=== PATIENT | male | born 1970 | race Caucasian/White ===

== ENCOUNTER 2017-06-07 16:44 | Inpatient (IN) | payer OTHER ==
--- NOTE | 2017-06-07 20:00 | NUR ---
PT IS RESTING IN BED WITH EYES OPEN. VOICED ANGER THAT HE HAD NOT EATEN SUPPER , AND NOBODY HAD ASKED HIM IF HE WAS HUNGRY. SANDWICH PLATTER GIVEN TO PT. HONEY THICKED WATER GIVEN TO PT. DRESSING TO ABD IS CDI. NO DRAINAGE NOTED. OLD TRACH SITE IS HEALING WELL. C COLLAR IS ON AND INTACT. CONTACT PRECAUTIONS OBSERVED WITH PT. PEG TUBE IS INTACT. SR'S ARE UP X 3. CALL LIGHT AND BEDSIDE TABLE ARE WITHIN EASY REACH.
[2017-06-07 22:00] VITALS: BP 120/82; BMI 38.5
--- NOTE | 2017-06-07 22:00 | NUR ---
ADMISSION ASSESSMENT COMPLETED. PT. IN BED WITH C-COLLAR IN PLACE. ABD. DRESSING C/D/I AND PEG TUBE CLAMPED. PT. REQUESTING HIS PAIN MEDICATION AT THIS TIME. INFORMED Davion STAPLES LPN, AND NURSE WAS ON HIS WAY INTO ROOM WITH IT NOW. CALL LIGHT WITHIN REACH.
[2017-06-07] MEDS ORDERED: BACTROBAN CREAM15 GM TOPICAL (22:53)
[2017-06-07] MEDS ORDERED: PERCOCET 5-3251 TAB PO (22:54)
[2017-06-07] MEDS ORDERED: NYSTATIN ORAL SU5 ML PO (22:54)
[2017-06-07] MEDS ORDERED: INDERAL10 MG PO (22:55)
[2017-06-07] MEDS ORDERED: SEROQUEL25 MG PO (22:56)
[2017-06-07] MEDS ORDERED: GAS-X80 MG PO (22:57)
[2017-06-07] MEDS ORDERED: TRANSDERM-SCOP1.5 MG TD (22:57)
[2017-06-07] MEDS ORDERED: PERIDEX480 ML MM (22:58)
[2017-06-07] MEDS ORDERED: CATAPRES0.1 MG PO (22:58)
[2017-06-07] MEDS ORDERED: LOVENOX40 MG/0.4 SC (22:59)
[2017-06-07] MEDS ORDERED: DURAGESIC1 PATCH .4 TRANSDERM (22:59)
[2017-06-07] MEDS ORDERED: GABAPENTIN100 MG PO (23:00)
[2017-06-07] MEDS ORDERED: NUTRISOURCE FI1 EACH GT (23:05)
[2017-06-07] MEDS ORDERED: HYDROCORTISONE30 G8 TOPICAL (23:05)
--- NOTE | 2017-06-07 23:49 | NUR ---
PT IS RESTING IN BED WATCHING TV. NO NEEDS VOICED.
--- NOTE | 2017-06-08 03:50 | NUR ---
PT IS RESTING QUIETLY IN BED WITH EYES CLOSED. RESPS ARE EVEN AND UNLABORED. NO ACUTE DISTRESS NOTED.
--- NOTE | 2017-06-08 06:10 | NUR ---
PT RESTING IN BED WITH EYES CLOSED. DRESSING TO ABD NOT CHANGED, DUE TO AWAITING SPECIFIC ORDERS THIS AM.
[2017-06-08 06:40] LABS: BASOPHILS 0.1 % (0-2); EOSINOPHILS 3.1 % (0-7); HEMATOCRIT 36.3 % (42.0-54.0); HEMOGLOBIN 11.3 g/dL (13.5-17.5); IMMATURE GRANULOCYTES 0.1 % (0-5); LYMPHOCYTES 20.5 % (15-50); MCH 29.4 pg (26.0-34.0); MCHC 31.1 g/dL (31.0-37.0); MCV 94.3 fL (80.0-100.0); MEAN PLATELET VOLUME 8.5 fL (7.4-10.4); MONOCYTES 7.8 % (2-11); NEUTROPHILS 68.4 % (40-80); PLATELET COUNT 652 10x3/uL (130-400); RBC 3.85 10x6/uL (4.20-6.10); RDW 16.3 % (11.5-14.5); WBC 6.9 10x3/uL (4.8-10.8)
[2017-06-08 06:53] LABS: CALC OSMOLALITY 274 mosm/kg (275-300); CARBON DIOXIDE 27.6 mmol/L (21.0-32.0); CHLORIDE - SERUM 102 mmol/L (98-107); CREATININE - SERUM 0.5 mg/dL (0.6-1.3); GLUCOSE 92 mg/dL (74-106); SODIUM 137 mmol/L (136-145); UREA NITROGEN 15 mg/dL (7-18); eGFR NON AFRICAN AMERICAN > 90 mL/min (90-120)
--- NOTE | 2017-06-08 08:07 | NUR ---
JUST CLEANED FROM TOLIETING.CL IN REACH.
[2017-06-08 08:10] VITALS: BP 108/65
--- NOTE | 2017-06-08 08:50 | NUR ---
PT RESTING IN BED WITH EYES OPEN CALL LIGHT IN REACH PT LINENS SOILED WITH URINE PT LINENS CHANGED SET UP FOR BREAKFAST WILL MONITER
[2017-06-08 10:16] VITALS: BMI 38.4
--- NOTE | 2017-06-08 17:00 | NUR ---
PT RESTING IN BED WITH EYES OPEN CALL LIGHT IN REACH NO PROBLEMS WILL MONITER
--- NOTE | 2017-06-08 19:45 | NUR ---
PT RESTING IN BED WATCHING TV. ALERT AND ORIENTED X 4. DENIES ACUTE DISCOMFORT AT THIS TIME. VSS. DRESSING TO ABDOMENT CHANGED AT THIS TIME. MOD AMOUNT OF THICK YELLOW DRAINAGE NOTED. NO ODOR DETECTED. SITE CLEANSED WITH NS, AND PACKED WITH NU GAUZE. COVERED WITH 4X4'S AND A ABD PAD. CONTACT PRECAUTIONS OBSERVED. C-COLLAR IS ON AND INTACT. PEG TUBE FLUSHED EASILY WITH H2O. AWAITING WELCOME HOSTESS TO DELIVER FEEDING PUMP TO START NIGHTLY FEEDING. SR'S ARE UP X 3 IN BED. CALL LIGHT AND BEDSIDE TABLE ARE WITHIN EASY REACH.
--- NOTE | 2017-06-08 20:02 | NUR ---
PT. IN BED AND IS WATCHING TV AND EATING IS DINNER PIE. CALL LIGHT WITHIN REACH.
[2017-06-08 21:01] VITALS: BP 114/73
--- NOTE | 2017-06-08 21:29 | NUR ---
PT IS RESTING IN BED WATCHING TV. NO NEEDS VOICED.
--- NOTE | 2017-06-08 22:32 | NUR ---
PET TUBE FEEDING STARTED AT THIS TIME.
--- NOTE | 2017-06-09 00:22 | NUR ---
RESTING IN BED WITH EYES CLOSED.
--- NOTE | 2017-06-09 04:19 | NUR ---
PT REQUESTED ASSIST ONTO BEDPAN AT THIS TIME. MAX ASSIST REQUIRED.
[2017-06-09 08:00] VITALS: BP 121/74
--- NOTE | 2017-06-09 09:00 | NUR ---
PATIENT REMAINS IN ISOLATION. ALERT/ORIENT X4. CALL LIGHT WITHIN REACH. PRN PERCOCET GIVEN FOR ALL OVER PAIN/DISC. PATIENT HAS A C COLLOR ON AT ALL TIME.
--- NOTE | 2017-06-09 13:54 | NUR ---
PATIENT USING URINAL AT BEDSIDE. VOIDING ADEQUTE AMOUNT. DARK YELLOW URINE
--- NOTE | 2017-06-09 15:32 | NUR ---
PRN PAIN MEDCIATION GIVEN FOR BACK/NECK PAIN
--- NOTE | 2017-06-09 16:00 | NUR ---
RESTING QUIETLY IN BED.CL IN REACH.
--- NOTE | 2017-06-09 18:30 | NUR ---
DRESSING TO ABDOMENAL WOULD, PEG TUBE CHANGED. WOUND NURSE CONSULT ORDERED. PATIRIVAST HELPED ONTO BEDPAIN. ASST OF TWO. PATIENT HAS SLIGHT BOWEL MOVEMENT BEFORE HE WAS PUT ON BEDPAN. NO BOWEL MOVEMENT WHILE ON BEDPAN.
--- NOTE | 2017-06-09 18:32 | NUR ---
OSMOLITE TUBE FEEDING STARTED. RUNNING AT 50CC/HR WITH 20CC/HR FLUSH. NUTRITANAL CONSULT ORDERED
--- NOTE | 2017-06-09 19:45 | NUR ---
OT TAKE A SHOWER FOR PT.
--- NOTE | 2017-06-09 20:10 | NUR ---
CHANGE LINEN IN BED.
--- NOTE | 2017-06-09 20:16 | NUR ---
PT. IN BED WITH HOB UP FOR COMFORT AND IS WATCHING TV. TUBEFEEDING INFUSING WITHOUT PROBLEMS. C-COLLAR IN PLACE. CALL LIGHT WITHIN REACH.
[2017-06-09 22:46] VITALS: BP 128/70
--- NOTE | 2017-06-10 02:50 | NUR ---
REST QUIETLY IN BED, EYE CLOSE, CALL LIGHT IN REACH.
--- NOTE | 2017-06-10 04:56 | NUR ---
FEEDING FINISH, AND TAKE OFF FEEDING TUBE.
[2017-06-10 05:38] LABS: BASOPHILS 0.2 % (0-2); EOSINOPHILS 3.3 % (0-7); HEMATOCRIT 36.1 % (42.0-54.0); HEMOGLOBIN 11.4 g/dL (13.5-17.5); IMMATURE GRANULOCYTES 0.2 % (0-5); LYMPHOCYTES 20.6 % (15-50); MCH 29.5 pg (26.0-34.0); MCHC 31.6 g/dL (31.0-37.0); MCV 93.3 fL (80.0-100.0); MEAN PLATELET VOLUME 8.5 fL (7.4-10.4); MONOCYTES 8.4 % (2-11); NEUTROPHILS 67.3 % (40-80); PLATELET COUNT 749 10x3/uL (130-400); RBC 3.87 10x6/uL (4.20-6.10); RDW 16.6 % (11.5-14.5); WBC 6.1 10x3/uL (4.8-10.8)
[2017-06-10 05:49] LABS: CALCIUM 11.1 mg/dL (8.5-10.1); CARBON DIOXIDE 29.3 mmol/L (21.0-32.0); CHLORIDE - SERUM 104 mmol/L (98-107); GLUCOSE 105 mg/dL (74-106); SODIUM 140 mmol/L (136-145)
[2017-06-10 05:54] LABS: CALC OSMOLALITY 281 mosm/kg (275-300); CREATININE - SERUM 0.7 mg/dL (0.6-1.3); POTASSIUM - SERUM 3.8 mmol/L (3.5-5.1); UREA NITROGEN 20 mg/dL (7-18); eGFR NON AFRICAN AMERICAN > 90 mL/min (90-120)
--- NOTE | 2017-06-10 06:20 | NUR ---
PT C/O ITCH ON BACK, HYDROCOTISONE ANTI ITCHING CREAM APPLIED.
[2017-06-10 08:00] VITALS: BP 131/76
--- NOTE | 2017-06-10 08:00 | NUR ---
PATIENT IS ALERT WITH SOME CONFUSION. CALL LIGHT WITHIN REACH. VOICES NO NEEDS AT THIS TIME. REMAINS IN CONTACT ISOLATION.
--- NOTE | 2017-06-10 09:15 | NUR ---
PRN ZOFRAN GIVEN FOR NAUSEA AT 0900. PRN PEROCET GIVEN FOR PAIN OF NECK AND BACK PER PATIENT REQUEST. PATIENT TAKEN INTO REHAB ROOM TO WORK WITH OCCUPATIONAL THERAPIST. ISOLATION PRECAUSIONS FOLLOWED IN REHAB ROOM.
--- NOTE | 2017-06-10 15:05 | NUR ---
PATIENT BACK IN BED AFTER THERPAY. WORKING WITH SPEECH THERAPIST IN ROOM.
--- NOTE | 2017-06-10 18:02 | NUR ---
DRESSING CHANGED TO ABDOMINAL WOUND. PEG TUBE FEEDING STARTED. OSMOLITE 1.5 RUNNING AT 50CC/HR WITH 20CC/HR FLUSH
--- NOTE | 2017-06-10 19:45 | NUR ---
ASSISTED PATIENT TO REARRANGE HIS COVERS AND TO REPOSITION SLIGHTLY FOR COMFORT. ELEVATED HOB 30 DEGREES FOR REFLUX PRECAUTIONS R/T TUBE FEEDING. BRIDGED HEELS FOR PRESSURE RELIEF. ELEVATED FOB FOR COMFORT. DENIES FURTHER NEEDS.
--- NOTE | 2017-06-10 20:40 | NUR ---
RESTING IN BED, EYES CLOSED.
[2017-06-10 22:15] VITALS: BP 114/70
--- NOTE | 2017-06-10 22:15 | NUR ---
ASSESSMENT AND HS MEDS COMPLETE. GAVE PATIENT PERCOCET 5/325 X1 TAB PO FOR HEADACHE PAIN OF 6/10. EMPTIED URINAL X2 OF 50ML EACH TIME. ADDED 240ML VOLUME TO OSMOLYTE TF TO CARRY IT THROUGH UNTIL 0500. ADJUSTED AIR CONDITIONER TEMP DOWN TO 60 DEGREES PER PATIENT REQUEST.
--- NOTE | 2017-06-11 | NUR ---
IN BED, EYES CLOSED. NO DISTRESS EVIDENT.
--- NOTE | 2017-06-11 01:20 | NUR ---
IN BED, EYES CLOSED. NO EVIDENT DISCOMFORT.
--- NOTE | 2017-06-11 03:20 | NUR ---
RESTING QUIETLY, EYES CLOSED. RESPIRATIONS ARE UNLABORED.
--- NOTE | 2017-06-11 06:10 | NUR ---
MID ABDOMINAL- AND PEG SITE DRESSINGS CHANGED PER ORDERS. PEG FEEDING D/C'D AND PEG TUBE FLUSHED WITH 50ML H2O.
[2017-06-11 07:56] VITALS: BP 108/59
--- NOTE | 2017-06-11 08:17 | NUR ---
EATING BREAKFAST. CALL LIGHT IN REACH
--- NOTE | 2017-06-11 08:25 | NUR ---
NOW C/O PAIN AND NAUSEA. MEDS GIVEN ORDERED FOR PAIN AND NAUSEA
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
--- NOTE | 2017-06-11 18:17 | NUR ---
TUBE FEEDS STARTED APPX 5PM. TUBE FLUSHED. NO RESISTANCE. DSG CHANGE DONE TO ABD. ENCOURAGED PT TO ROLL OFF BUTTOCKS TO PREVENT SKIN BREAKDOWN. HAS HARD C-COLLAR IN PLACE.
--- NOTE | 2017-06-11 20:00 | NUR ---
IN BED, AWAKE. HOB UP 45 DEGREES. COMPLAINS OF UNEXPLAINED PAIN DISCOMFORT IN UPPER ABDOMEN. CURRENTLY NOT ACUTE. WILL ASSESS FURTHER WHEN I RETURN FOR ASSESSMENT AND HS MEDS.
[2017-06-11 21:50] VITALS: BP 110/60
--- NOTE | 2017-06-11 21:50 | NUR ---
ASSESSMENT AND HS MEDS COMPLETE. HELD CLONIDINE 0.1MG FOR BP OF 110/60. DID GIVE SCHEDULED RYTHMOL. GAVE PATIENT PERCOCET 5/325 X1 TAB PO FOR PAIN LEVEL OF 4/10 IN NECK AND BACK. GAVE HIM SIMETHICONE 80MG CHEW FOR C/O PROBABLE GAS PAIN IN LUQQ ABDOMEN. TF CONTINUES @ 50ML/HR WITH 20ML PER HOUR H2O FLUSH. LOWERED HOB TO 30 DEGREES FOR COMFORT AND REFLUX PRECAUTIONS R/T TUBE FEEDING.
--- NOTE | 2017-06-12 00:10 | NUR ---
RESTING IN BED, EYES CLOSED. APPEARS COMFORTABLE. EMPTIED 100ML FROM BEDSIDE URINAL.
--- NOTE | 2017-06-12 04:40 | NUR ---
IN BED, EYES CLOSED. RESPIRATIONS ARE QUIET AND UNLABORED.
--- NOTE | 2017-06-12 06:25 | NUR ---
ASSISTED PATIENT TO BATHE AND CHANGE SCRUB TOP AND PULL-UP. CHANGED ALL LINENS. REPOSITIONED PATIENT HIGHER UP IN BED. PATIENT C/O PAIN LEVEL OF 6/10 IN NECK AND BACK. GAVE HIM PERCOCET 5/325 X1 TAB PO. PRIOR TO PAIN MEDICATION, CHANGED PATIENT'S ABDOMINAL WOUND- AND PEG DRESSINGS PER CURRENT ORDERS.
[2017-06-12 06:34] LABS: BASOPHILS 0.3 % (0-2); EOSINOPHILS 3.6 % (0-7); HEMATOCRIT 34.6 % (42.0-54.0); HEMOGLOBIN 10.8 g/dL (13.5-17.5); IMMATURE GRANULOCYTES 0.2 % (0-5); LYMPHOCYTES 23.5 % (15-50); MCH 29.3 pg (26.0-34.0); MCHC 31.2 g/dL (31.0-37.0); MCV 93.8 fL (80.0-100.0); MEAN PLATELET VOLUME 8.7 fL (7.4-10.4); MONOCYTES 7.5 % (2-11); NEUTROPHILS 64.9 % (40-80); PLATELET COUNT 732 10x3/uL (130-400); RBC 3.69 10x6/uL (4.20-6.10); RDW 16.6 % (11.5-14.5); WBC 6.4 10x3/uL (4.8-10.8)
[2017-06-12 07:06] LABS: CALC OSMOLALITY 277 mosm/kg (275-300); CALCIUM 10.2 mg/dL (8.5-10.1); CHLORIDE - SERUM 101 mmol/L (98-107); CREATININE - SERUM 0.7 mg/dL (0.6-1.3); GLUCOSE 78 mg/dL (74-106); SODIUM 138 mmol/L (136-145); UREA NITROGEN 20 mg/dL (7-18); eGFR NON AFRICAN AMERICAN > 90 mL/min (90-120)
--- NOTE | 2017-06-12 08:00 | NUR ---
BREAKFAST TRAY GIVEN.CL IN REACH.SITTING UP IN BED FOR BREAKFAST.
--- NOTE | 2017-06-12 08:00 | NUR ---
PATIENT REMAINS IN CONTACT ISOLATION FOR ABDOMINAL WOUND. ALERT/ORIENT X4. C-COLLAR BRACE ON AT ALL TIMES. ASPEN BRACE ON WHEN PATIENT GETS OUT OF BED. TOTAL ASST TO TRANSFER FROM BED TO WHEELCHAIR. NICHOLAS BED ALARM ON BED. USING CALL LIGHT FOR ALL NEEDS. CALL LIGHT WITHIN REACH.
[2017-06-12 08:11] VITALS: BP 148/64
--- NOTE | 2017-06-12 10:10 | NUR ---
PATIENT IN REHAB ROOM WORKING WITH PHYSICAL THERAPIST. DENIES ANY PAIN/DISC AT THIS TIME
--- NOTE | 2017-06-12 12:55 | NUR ---
PATIENT SITTING UP IN WHEELCHAIR IN ROOM. PRN PAIN MEDICATION GIVEN FOR NECK, BACK AND ALL OVER PAIN/DISC PER PATIENT REQUEST
--- NOTE | 2017-06-12 13:37 | NUR ---
RD follow up, Pt reports he is getting more of an appetite, says he eat slowly though eating more. Pt receiving Tube feed of osmolite 1.2@ 50cc/hr with 20cc water/hr, from 5p to 5A. Pt has been tolerating feeds. Discussed with pt about decreasing feeds as well as with nursing to decrease feeeds. Meds reviered, Po is about 42.5% on regular ms/ diet with honey thick liquids. PLAN: Will submite orders for decrease feeds by 10cc/hr per day. SAT: go at 40cc/hr, : 30cc/hr, Saturday: 20cc/hr. Will f/u with pt regarding oral intake and tolerance for need to adjust tube feed plan. This will decrease tube feed 120mls/day ~ 144caloreis per day. Will contiue to follow and monitor closely
--- NOTE | 2017-06-12 14:26 | NUR ---
CARE TEAM MEETING: TENATIVE DISCHARGE DATE IS 06/27/17 . WILL CONTINUE TO FOLLOW WITH PATIENT AND ASSIST WITH DISCHARGE NEEDS.
--- NOTE | 2017-06-12 14:43 | NUR ---
WOUND NURSE CALLED. MESSAGE LEFT FOR EVAL AND TREAT OF ABDOMINAL WOUND.
--- NOTE | 2017-06-12 18:26 | NUR ---
WOUND DRESSING CHANGED TO ABDOMINAL WOUND PER ORDER. G TUBE FEEDING RUNNING. DEGRESSING AMOUNT RUNNING AT 40CC/HR.
--- NOTE | 2017-06-12 19:30 | NUR ---
STARTED SCD'S AFTER TROUBLESHOOTING AND RESOLVING THE ISSUE FOUND. PATIENT DENIES CURRENT NEEDS.
[2017-06-12 21:30] VITALS: BP 118/66
--- NOTE | 2017-06-12 21:30 | NUR ---
ASSESSMENT AND HS MEDS COMPLETE. GAVE PATIENT PERCOCET 5/325 X1 TAB PO FOR PAIN LEVEL OF 7/10 IN NECK AND BACK. ALSO GAVE HIM SIMETHICONE 80MG CHEW FOR C/O GASEOUS DISCOMFORT IN ABDOMEN.
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
--- NOTE | 2017-06-13 00:35 | NUR ---
IN BED, EYES CLOSED. HOB UP 30 DEGREES. NO DISTRESS EVIDENT.
--- NOTE | 2017-06-13 02:40 | NUR ---
RESTING QUIETLY. NO DISTRESS NOTED. EMPTIED 150ML FROM BEDSIDE URINAL.
--- NOTE | 2017-06-13 05:55 | NUR ---
GAVE PATIENT PERCOCET 5/325 X1 TAB PO FOR PAIN LEVEL OF 5/10 IN BACK AND NECK. CHANGED PAEG DRESSING AND MID ABDOMINAL DRESSING PER CURRENT ORDERS. ASSISTED HIM TO CHANGE HIS PULL-UP AND SCRUB TOP. EMPTIED 150MOL FROM BEDSIDE URINAL.
--- NOTE | 2017-06-13 07:36 | NUR ---
SITTING UP IN BED WATCHING TV. OFFER NO COMPLAINTS. NO S/SX OF DISTRESS. CALL LIGHT WITHIN REACH, BED LOW AND ALARM ON. WILL CONTINUE TO MONITOR
--- NOTE | 2017-06-13 07:54 | NUR ---
SITTING UP IN BED EATING BREAKFAST.CL IN REACH.MEAL PREP SET-UP PROVIDED.CL IN REACH.
[2017-06-13 10:07] VITALS: BP 106/63
--- NOTE | 2017-06-13 11:10 | NUR ---
SITTING UP IN BED WATCHING TV. OFFERS NO COMPLAINTS. NO S/SX OF DISTRESS. CALL LIGHT WITHIN REACH. BED ALARM ON. WILL CONTINUE TO MONITOR
--- NOTE | 2017-06-13 15:33 | NUR ---
SITTING UP IN BED RESTING QUIETLY. OFFERS NO COMPLAINTS. CALL LIGHT WITHIN REACH. BED LOW AND ALARM ON. WILL CONTINUE TO MONITOR.
--- NOTE | 2017-06-13 16:59 | NUR ---
CLINICALS FAXED TO [facility] [phone] WITH CONFORMATION RECIEVED
--- NOTE | 2017-06-13 19:15 | NUR ---
IN BED, HOB UP 30 DEGREES. DENIES NEEDS.
[2017-06-13 21:50] VITALS: BP 122/78
--- NOTE | 2017-06-13 21:50 | NUR ---
ASSESSMENT AND HS MEDS COMPLETE. GAVE PATIENT SIMETHICONE 80MG CHEW FOR ONGOING ABDOMINAL GAS DISCOMFORT. GAVE HIM PERCOCET 5/325 X1 TAB PO FOR PAIN LEVEL OF 7/10 IN LEFT SHOULDER AND NECK.
--- NOTE | 2017-06-14 00:10 | NUR ---
CONTINUES IN BED, EYES CLOSED. HOB UP 30 DEGREES. OSMOLITE 1.5 TF CONTINUES INFUSING PER PUMP VIA PEG TUBE @ 30ML/HR.
--- NOTE | 2017-06-14 02:30 | NUR ---
CONTINUES IN BED, EYES CLOSED. NO APPARENT DISCOMFORT.
--- NOTE | 2017-06-14 04:45 | NUR ---
IN BED, EYES CLOSED. RESPIRING QUIETLY.
--- NOTE | 2017-06-14 05:45 | NUR ---
GAVE PATIENT PERCOCET 5/325 X1 TAB PO FOR NECK AND BACK PAIN OF LEVEL 5/10. WILL RETURN TO CHANGE DRESSINGS.
[2017-06-14 06:50] LABS: BASOPHILS 0.5 % (0-2); EOSINOPHILS 4.1 % (0-7); HEMATOCRIT 33.9 % (42.0-54.0); HEMOGLOBIN 10.7 g/dL (13.5-17.5); IMMATURE GRANULOCYTES 0.2 % (0-5); LYMPHOCYTES 29.2 % (15-50); MCH 29.4 pg (26.0-34.0); MCHC 31.6 g/dL (31.0-37.0); MCV 93.1 fL (80.0-100.0); MEAN PLATELET VOLUME 8.4 fL (7.4-10.4); MONOCYTES 8.9 % (2-11); NEUTROPHILS 57.1 % (40-80); PLATELET COUNT 669 10x3/uL (130-400); RBC 3.64 10x6/uL (4.20-6.10); RDW 16.8 % (11.5-14.5); WBC 5.6 10x3/uL (4.8-10.8)
[2017-06-14 07:05] LABS: CALC OSMOLALITY 274 mosm/kg (275-300); CALCIUM 10.3 mg/dL (8.5-10.1); CHLORIDE - SERUM 102 mmol/L (98-107); CREATININE - SERUM 0.6 mg/dL (0.6-1.3); GLUCOSE 82 mg/dL (74-106); SODIUM 138 mmol/L (136-145); UREA NITROGEN 12 mg/dL (7-18); eGFR NON AFRICAN AMERICAN > 90 mL/min (90-120)
--- NOTE | 2017-06-14 08:19 | NUR ---
EATING BREAKFAST IN ROOM. CALL LIGHT IN REACH
--- NOTE | 2017-06-14 08:30 | NUR ---
PT RESTING IN BED WITH EYES OPEN CALL LIGHT IN REACH WILL MONITER
[2017-06-14 08:47] VITALS: BP 101/61
--- NOTE | 2017-06-14 10:54 | NUR ---
RD f/u note. Chart reviewed and spoke with pt who reports good appetite. Talked about tube feed plan to go ahead and do feeds tonight, hold this and RD to f/u on saturday to see if feeds needs to be restarte. Pt has been eating well. Tonights feeds will provide 240mls, 360cal. consumed 100% at meals 06/13, miriam 17 BM 06/13 no pressure, skin imparimnets reviewed. Plan: will feed osmolite 1.5 @20cc/hr with 20cc water/hr Will order magic cup with all meals. RD to follow REC: encourage fluid intake and continue to encourage oral intake.
--- NOTE | 2017-06-14 12:00 | NUR ---
PT RESTING IN BED WITH EYES OPEN CALL LIGHT IN REACH WILL MONITER
--- NOTE | 2017-06-14 16:05 | NUR ---
Wound care: Chronic open wound on right side of chest. Current treatment is cleansing well with wound bell cleaner and packing with normal saline moistened packing strip. Cover with 4x4s and securing with medipore tape. Recommend continuing current treatment.
--- NOTE | 2017-06-14 18:45 | NUR ---
RECIEVED UP IN BED WITH EYES OPEN AND TV ON. DENIES ANY PAIN. OSMOLITE RUNNING AT 20CC/HR. HOB ELEVATED. DENIES ANY PAIN. CALL LIGHT IN REACH.
[2017-06-14 19:21] VITALS: BP 108/64
--- NOTE | 2017-06-14 21:15 | NUR ---
RESTING IN BED WITH EYES OPEN AND TV ON. HAS HAD 2 INCONTINENT EPISODES OF BOWEL AT THIS TIME. ABLE TO TURN HIMSELF. DENIES ANY PAIN . CALL LIGHT AND OVERBED TABLE IN REACH.
--- NOTE | 2017-06-15 02:11 | NUR ---
RESTING IN BED WITH EYES CLOSED. NO S/S OF DISTRESS OBSERVED. CALL LIGHT AND OVERBED TABLE IN REACH.
--- NOTE | 2017-06-15 02:28 | NUR ---
RESTING IN BED WITH EYES CLOSED. NO S/S OF DISTRESS OBSERVED. PEG TUBE CHECKED FOR PATENCY WITH 0 ASPIRATED. FLUSHED PER PROTOCOL. CALL LIGHT AND OVERBED TABLE IN REACH.
--- NOTE | 2017-06-15 07:18 | NUR ---
RESTING QUIETLY IN BED. CALL LIGHT IN REACH. BED IN LOW POSITION. BED ALARM IN PLACE AND IN USE.
[2017-06-15 08:00] VITALS: BP 137/84
--- NOTE | 2017-06-15 08:00 | NUR ---
SITTING UP IN BED EATING BREAKFAST. OFFERS NO COMPLAINTS. ALERT AND ORIENTED X4. OFFERS NO COMPLAINTS. CALL LIGTH WITHIN REACH BED LOW AND ALARM ON. WILL COTNINUE TO MONITOR
--- NOTE | 2017-06-15 17:59 | NUR ---
SITTING UP IN BED WATCHING TV. DENIES ANY NEEDS. CALL LIGHT WITHIN REACH, BED LOW, AND ALARM ON. WILL CONTINUE TO MONITOR
--- NOTE | 2017-06-15 18:58 | NUR ---
RECIEVED UP IN BED WITH EYES OPEN AND TV ON. PLEASANT AND COOPERATIVE. DENIES ANY PAIN OR NEEDS AT THIS TIME. CALL LIGHT AND OVERBED TABLE IN REACH.
[2017-06-15 20:00] VITALS: BP 126/74
--- NOTE | 2017-06-15 21:34 | NUR ---
RESTING IN BED WITH EYES OPEN AND TV ON. NO S/S OF DISTRESS OBSERVED. DENIES ANY PAIN. CALL LIGHT IN REACH.
--- NOTE | 2017-06-16 03:07 | NUR ---
RESTING IN BED WITH EYES CLOSED. HOB ELEVATED TO 30 DEGREES FOR COMFORT. SCD'S ON AND FUNCTIONING PROPERLY. TUBE FEEING ON HOLD AT THIS TIME PER ORDERS. CALL LIGHT AND OVERBED TABLE IN REACH.
--- NOTE | 2017-06-16 06:22 | NUR ---
REFUSED SHOWER THIS AM. STATED HE WOULD TAKE ONE LATER. DRESSING CHANGE TO ABD COMPLTED AND PEG TUBE DRESSING CHANGED WITH SITE CLEANSED. CALL LIGHT AND OVERBED TABLE IN REACH.
--- NOTE | 2017-06-16 07:50 | NUR ---
SITTING UP IN BED WATCHING TV. NO S/SX OF DISTRESS. ALERT AND ORIENTED X3. DENIES ANY NEEDS, CALL LIGHT WITHIN REACH, BED ALARM ON AND IN LOWEST POSITION. WILL CONTINUE TO MONITOR
[2017-06-16 08:00] VITALS: BP 140/72
--- NOTE | 2017-06-16 13:10 | NUR ---
SITTING UP IN BED WATCHING TV. DENIES ANY NEEDS. CALL LIGHT WITHIN REACH. WILL CONTINUE TO MONITOR
--- NOTE | 2017-06-16 19:44 | NUR ---
ALERT ORIENTED AND AWAKE. RESTING IN BED WITH EYES CLOSED. NO S/S OF DISTRESS OBSERVED. HOB ELEVATED TO 30 DEGREES. DENIES ANY PAIN OR NEEDS AT THIS TIME.
[2017-06-16 20:53] VITALS: BP 127/52
--- NOTE | 2017-06-16 21:38 | NUR ---
LAYING IN BED WITH TV ON. BED BATH GIVEN AND HAIR WASHED. COMPLETE BED CHANGE DONE. DENIES ANY PAIN. FENTYL PATCH CHANGED THIS SHIFT TO LEFT POSTERIOR SHOULDER. PEG TUBE CHECKED FOR PATENCY WITH 0 ASPIRATED AND FLUSHED. FEET ARE VERY DRY AND SCALEY. LOTION APPLIED AFTER BATH. CALL LIGHT AND OVERBED TABLE IN REACH.
--- NOTE | 2017-06-17 00:17 | NUR ---
RESTING IN BED WITH EYES CLOSED. NO S/S OF DISTRESS OBSERVED. CALL LIGHT AND OVERBED TABLE IN REACH.
--- NOTE | 2017-06-17 02:01 | NUR ---
RESTING IN BED WITH EYES CLOSED. NO S/S OF DISTRESS OBSERVED. HOB ELEVATED. CALL LIGHT AND OVERBED TABLE IN REACH.
[2017-06-17 05:36] LABS: BASOPHILS 0.2 % (0-2); EOSINOPHILS 4.1 % (0-7); HEMATOCRIT 35.4 % (42.0-54.0); HEMOGLOBIN 11.4 g/dL (13.5-17.5); IMMATURE GRANULOCYTES 0.2 % (0-5); MCH 29.8 pg (26.0-34.0); MCHC 32.2 g/dL (31.0-37.0); MCV 92.4 fL (80.0-100.0); MEAN PLATELET VOLUME 8.4 fL (7.4-10.4); MONOCYTES 9.4 % (2-11); NEUTROPHILS 56.1 % (40-80); PLATELET COUNT 605 10x3/uL (130-400); RBC 3.83 10x6/uL (4.20-6.10); RDW 16.7 % (11.5-14.5); WBC 5.1 10x3/uL (4.8-10.8)
[2017-06-17 05:44] LABS: CALC OSMOLALITY 274 mosm/kg (275-300); CALCIUM 10.2 mg/dL (8.5-10.1); CARBON DIOXIDE 28.7 mmol/L (21.0-32.0); CHLORIDE - SERUM 103 mmol/L (98-107); CREATININE - SERUM 0.7 mg/dL (0.6-1.3); GLUCOSE 81 mg/dL (74-106); SODIUM 138 mmol/L (136-145); UREA NITROGEN 12 mg/dL (7-18); eGFR NON AFRICAN AMERICAN > 90 mL/min (90-120)
[2017-06-17 08:23] VITALS: BP 101/58
--- NOTE | 2017-06-17 09:35 | NUR ---
SITTING UO FOR MEAL.MEAL SET-UP PROVIDED.DENIES NEEDS.CL IN REACH.
--- NOTE | 2017-06-17 09:38 | NUR ---
Nutrition Follow Up: Pt is eating 59% meal avg on a regular [facility] soft diet with honey thick liquids. Nocturnal TF has been on hold x 2 days. Pt's po intake continues to improve. +BM 06/16/17. No new wt. Meds and labs reviewed. Will put order in to d/c nocturnal TF. Rec continue regular diet with SHEEP BONER recs for consistencies. RD following.
--- NOTE | 2017-06-17 10:13 | NUR ---
PT RESTING IN BED WITH EYES OPEN CALL LIGHT IN REACH WILL MONITER
--- NOTE | 2017-06-17 18:57 | NUR ---
RECIEVED UP IN BED WITH EYES OPEN. PLEASANT AND COOPERATIVE. DENIES ANY PAIN OR DISCOMFORT. CALL LIGHT AND OVERBED TABLE IN REACH.
[2017-06-17 20:23] VITALS: BP 122/57
--- NOTE | 2017-06-17 21:33 | NUR ---
RESTING IN BED WITH EYES OPEN AND TV ON. PLEASANT AND COOPERATIVE. DENIES ANY NEEDS. CALL LIGHT AND OVERBED TABLE IN REACH.
[2017-06-17 22:32] VITALS: BP 122/57
--- NOTE | 2017-06-18 00:30 | NUR ---
RESTING IN BED WITH EYES CLOSED. NO S/S OF DISTRESS OBSERVED. HOB ELEVATED. REMAINS IN CONTACT ISOLATION R/T MRSA IN WOUND. CALL LIGHT AND OVERBED TABLE IN REACH.
--- NOTE | 2017-06-18 04:22 | NUR ---
RESTING IN BED WITH EYES CLOSED. NO S/S OF DISTRESS OBSERVED. HOB ELEVATED. CALL LIGHT AND OVERBED TABLE IN REACH.
--- NOTE | 2017-06-18 07:45 | NUR ---
SITTING UP IN BED RESTING. OFFERS NO COMPLAINTS. ALERT AND ORIENTED X4. NO S/SX OF DISTRESS. CALL LIGHT WITHIN REACH, BED LOW AND ALARM ON. WILL CONTINUE TO MONITOR
[2017-06-18 09:52] VITALS: BP 99/57
--- NOTE | 2017-06-18 12:00 | NUR ---
SITTING UP EATING LUNCH.CL IN REACH.
--- NOTE | 2017-06-18 13:53 | NUR ---
SITTING UP IN WHEELCHAIR WATCHING TV. DENIES ANY NEEDS. NO S/SX OF DISTRESS. CALL LIGHT WITHIN REACH. BOX ALARM ON. WILL CONTINUE TO MONITOR
--- NOTE | 2017-06-18 15:28 | NUR ---
REVIEWED DISCHARGE INSTRUCTIONS AND MEDICATIONS WITH PATIENT AND FAMILY. NO CONCERNS VOICED. TRANSPORTED PT OUT VIA WHEELCHAIR TO FRONT AND ASSISTED IN FRONT OF PERSONAL VEHICLE AND BUCKLED UP IN [place]. PATIENT FAMILY HAS PT BELONGS AND COPY OF DISCHARGE INSTRUCTIONS
--- NOTE | 2017-06-18 16:59 | NUR ---
SITTING UP IN BED WATCHING TV. DENIES ANY NEEDS. CALL LIGHT WITHIN REACH. BED ALARM ON. BED IN LOWEST POSITION. WILL CONTINUE TO MONITOR
--- NOTE | 2017-06-18 19:30 | NUR ---
PATIENT IN BED, AWAKE. DAY SHIFT NURSE JUST CHANGED HIS ABDOMINAL DRESSING AND ASSISTED HIM WITH BEDPAN. HAD MEDIUM VOLUME FORMED BM AND URINATED UNMEASURED AMOUNT.
--- NOTE | 2017-06-18 19:36 | NUR ---
CHANGED DRESSING TO MID UPPER ABDOMEN. CLEANSED WITH WOUND CLEANSER AND PATTED DRY WITH 4X4. PACKED WITH NS MOISTENED IODAFORM AND PLACED FOLDED 4X4 OVER TOP AND COVERED WITH BORDERED DRESSING. 1.5CM X 1.5CM
--- NOTE | 2017-06-18 21:30 | NUR ---
IN BED, EYES CLOSED. NO DISTRESS NOTED.
[2017-06-18 22:04] VITALS: BP 116/59
--- NOTE | 2017-06-18 23:15 | NUR ---
REPOSITIONED PATIENT UP IN BED. ASSESSMENT AND HS MEDS COMPLETE. C/O PAIN LEVEL OF 8/10 IN BACK AND NECK. GAVE HIM PERCOCET 5/325 X1 TAB PO.
--- NOTE | 2017-06-19 00:45 | NUR ---
RESTING IN BED, EYES CLOSED.
--- NOTE | 2017-06-19 02:15 | NUR ---
IN BED, EYES CLOSED.
--- NOTE | 2017-06-19 04:20 | NUR ---
RESTING QUIETLY, EYES CLOSED. EMPTIED 125ML FROM BEDSIDE URINAL.
--- NOTE | 2017-06-19 05:55 | NUR ---
IN BED, EYES CLOSED. NO DISTRESS EVIDENT.
[2017-06-19 06:47] LABS: BASOPHILS 0.3 % (0-2); EOSINOPHILS 3.8 % (0-7); HEMOGLOBIN 11.2 g/dL (13.5-17.5); LYMPHOCYTES 27.5 % (15-50); MCH 29.2 pg (26.0-34.0); MCV 91.4 fL (80.0-100.0); MEAN PLATELET VOLUME 8.6 fL (7.4-10.4); MONOCYTES 10.3 % (2-11); NEUTROPHILS 58.1 % (40-80); PLATELET COUNT 539 10x3/uL (130-400); RBC 3.83 10x6/uL (4.20-6.10); RDW 16.9 % (11.5-14.5)
[2017-06-19 07:02] LABS: CALC OSMOLALITY 272 mosm/kg (275-300); CALCIUM 10.2 mg/dL (8.5-10.1); CARBON DIOXIDE 29.3 mmol/L (21.0-32.0); CHLORIDE - SERUM 103 mmol/L (98-107); CREATININE - SERUM 0.6 mg/dL (0.6-1.3); GLUCOSE 78 mg/dL (74-106); POTASSIUM - SERUM 3.8 mmol/L (3.5-5.1); SODIUM 137 mmol/L (136-145); UREA NITROGEN 12 mg/dL (7-18); eGFR NON AFRICAN AMERICAN > 90 mL/min (90-120)
[2017-06-19 08:00] VITALS: BP 100/61
--- NOTE | 2017-06-19 08:15 | NUR ---
PT RESTING IN BED WITH EYES OPEN CALL LIGHT IN REACH WILL MONITER PT EATING BREAKFAST TOLERATING WELL
--- NOTE | 2017-06-19 08:53 | NUR ---
RESTING QUIETLY IN BED. DENIES NEEDS OR C/O. CALL LIGHT IN REACH. BED IN LOWEST POSITION.
--- NOTE | 2017-06-19 14:41 | NUR ---
PT UP IN WHEELCHAIR IN THERAPY GYM TOLERATING WELL WILL MONITER
--- NOTE | 2017-06-19 17:40 | NUR ---
PT RESTING IN BED WITH EYES OPEN CALL LIGHT IN REACH WILL MONITER
--- NOTE | 2017-06-19 19:20 | NUR ---
PATIENT IN BED, HOB UP [address] AND FUNCTIONING. RESTING QUIETLY WITH EYES CLOSED.
--- NOTE | 2017-06-19 20:00 | NUR ---
CONTINUES IN BED, RESTING QUIETLY, EYES CLOSED. APPEARS COMFORTABLE.
[2017-06-19 21:30] VITALS: BP 105/54
--- NOTE | 2017-06-19 21:30 | NUR ---
ASSESSMENT AND HS MEDS COMPLETE. HELD INDERAL 10MG AND CLONIDINE 0.1MG FOR BP 105/54. REPORTS PAIN LEVEL OF ONLY 2/10. CHANGED HIS DURAGESIC PATCH. DID NOT WANT ORAL ANALGESIA AT THIS TIME.
--- NOTE | 2017-06-19 22:20 | NUR ---
RESTING QUIETLY IN BED, EYES CLOSED. NO APPARENT DISCOMFORT.
--- NOTE | 2017-06-20 00:10 | NUR ---
IN BED, EYES CLOSED, RESTING QUIETLY.
--- NOTE | 2017-06-20 02:40 | NUR ---
REMAINS IN BED, HOB UP 25 DEGREES. APPEARS COMFORTABLE.
--- NOTE | 2017-06-20 04:45 | NUR ---
IN BED, EYES CLOSED. RESPIRING QUIETLY. EMPTIED 275ML FROM BEDSIDE URINAL.
--- NOTE | 2017-06-20 05:50 | NUR ---
CHANGED PEG AND ABDOMINAL WOUND DRESSINGS. DENIES NEEDS. REPORTS PAIN LEVEL IS AT 1-2/10.
--- NOTE | 2017-06-20 07:36 | NUR ---
LYING IN BED RESTING. EASILY AROUSED WITH STIMULI. ALERT AND ORIENTED NO S/SX OF DISTRESS. CALL LIGHT WITHIN REACH. BED IN LOWEST POSITION. WILL CONTINUE TO MONITOR
[2017-06-20 07:53] VITALS: BP 123/67
--- NOTE | 2017-06-20 11:33 | NUR ---
SITTING UP IN WHEELCHAIR IN THERAPY GYM WITH OCCUPATIONAL THERAPY. DENIES ANY NEEDS. WILL CONTINUE TO MONITOR
--- NOTE | 2017-06-20 14:44 | NUR ---
IN THERAPY GYM WITH PHYSICAL THERAPY. NO S/SX OF DISTRESS. WILL CONTINUE TO MONITOR
--- NOTE | 2017-06-20 18:38 | NUR ---
RESTING QUIETLY IN BED. CALL LIGHT IN REACH. BED IN LOWEST POSITION.
--- NOTE | 2017-06-20 19:30 | NUR ---
IN BED, AWAKE. DENIES NEEDS.
[2017-06-20 21:05] VITALS: BP 132/70
--- NOTE | 2017-06-20 21:05 | NUR ---
ASSISTED PATIENT UP TO SHOWER, THEN TO DRESS AND BACK TO BED AFTER COMPLETE LINEN CHANGE. DENIES CURRENT NEEDS.
--- NOTE | 2017-06-20 22:00 | NUR ---
RESTING QUIETLY, EYES CLOSED.
--- NOTE | 2017-06-21 00:15 | NUR ---
RESTING IN BED, EYES CLOSED. NO EVIDENT DISCOMFORT.
--- NOTE | 2017-06-21 02:05 | NUR ---
CONTINUES IN BED, EYES CLOSED. HOB UP 35 DEGREES. APPEARS COMFORTABLE.
--- NOTE | 2017-06-21 04:20 | NUR ---
IN BED, EYES CLOSED. RESPIRING QUIETLY. EMPTIED 200ML FROM BEDSIDE URINAL.
--- NOTE | 2017-06-21 06:00 | NUR ---
IN BED, RESTING QUIETLY EYES CLOSED.
[2017-06-21 07:52] VITALS: BP 111/66
--- NOTE | 2017-06-21 08:00 | NUR ---
SITTING UP IN BED.BREAKFAST GIVEN.CL IN REACH.
--- NOTE | 2017-06-21 12:00 | NUR ---
SITTING UP EATING MEAL.
--- NOTE | 2017-06-21 13:57 | NUR ---
CLINICALS FAXED TO [facility] AT , REGARDING AUTH # [id number]. CONFORMATION RECIEVED
--- NOTE | 2017-06-21 16:00 | NUR ---
SITTING UP IN CHAIR.CL IN REACH.
--- NOTE | 2017-06-21 19:30 | NUR ---
RECIEVED UP IN BED WITH SOFT COLLAR. STATED "LOOK HERE". REPLIED i HEARD YOU HAD A NEW COLLAR. PLEASANT AND COOPERATIVE. DENIES ANY PAIN. CALL LIGHT AND OVERBED TABLE IN REACH.
[2017-06-21 20:45] VITALS: BP 118/68
--- NOTE | 2017-06-21 21:37 | NUR ---
RESTING IN BED WITH EYES OPEN. C/O NECK PAIN AT 8 AND REQUEST PAIN PILL. OFFERED TO PUT ASPEN COLLAR BACK ON. HE REFUSED. MEDS GIVEN PER ORDER. WILL REASSESS.
--- NOTE | 2017-06-22 04:03 | NUR ---
RESTING IN BED WITH EYES CLOSED. NO S/S OF DISTRESS OBSERVED. CALL LIGHT AND OVERBED TABLE IN REACH.
[2017-06-22 08:00] VITALS: BP 121/61
--- NOTE | 2017-06-22 19:45 | NUR ---
ASSESSTED VITAL SIGNS, SEE FLOWSHEET.
--- NOTE | 2017-06-22 20:09 | NUR ---
PT. IN BED WITH HOB UP FOR COMFORT. C-COLLAR ON AND PT. IS WATCHIN TV. CALL LIGHT WITHIN REACH.
[2017-06-22 22:31] VITALS: BP 126/60
--- NOTE | 2017-06-22 22:56 | NUR ---
EMPTY URINAL 200MLS.
--- NOTE | 2017-06-23 01:11 | NUR ---
RESTING QUIETLY IN BED WITH EYES CLOSED.
--- NOTE | 2017-06-23 06:13 | NUR ---
DRESSING TO ABD CHANGED PER ORDERS. NO DRAINAGE NOTED. HEALING WELL.
--- NOTE | 2017-06-23 08:00 | NUR ---
CONT POC.CL IN REACH.
[2017-06-23 08:15] VITALS: BP 120/62
--- NOTE | 2017-06-23 12:00 | NUR ---
COMPLETED SHOWER AFTER SEVERAL TIMES ASKING PT TO GET UP TO SHOWER TO CLEAN A LARGE INCONTINENT STOOL THAT HE HAD.HE STATED THE NURSE SHOULD CLEAN IT OFF OF ME.CAN AMBULATE TO BATHROOM AND SHOWER WITH SBA WHILE USING WALKER.ARGUMENTIVE WITH CARE,INSTRUCTION,MEDICATIONS.REFUSED TO STAY OOB FOR ANY LENGTH OF TIME LAST TWO DAYS.
--- NOTE | 2017-06-23 16:00 | NUR ---
RESTING QUIETLY IN BED.USES URINAL THROUGHOUT DAY.
--- NOTE | 2017-06-23 19:31 | NUR ---
PT IS RESTING IN BED WATCHING TV. ALERT AND ORIENTED X 3. DENIES ACUTE PAIN OR DISCOMFORT AT THIS TIME. VSS. C COLLAR IS ON AND INTACT. DRESSING TO ABD IS CDI. NO DRAINAGE NOTED. NO NEEDS VOICED. SR'S ARE UP X 3 IN BED. CALL LIGHT AND BEDSIDE TABLE ARE WITHIN EASY REACH.
--- NOTE | 2017-06-23 19:41 | NUR ---
PT. IN BED WITH HOB UP FOR COMFORT. C-COLLAR IN PLACE PT. IS WATCHING TV. CALL LIGHT WITHIN REACH.
[2017-06-23 20:00] VITALS: BP 114/60
--- NOTE | 2017-06-23 21:23 | NUR ---
PT IS RESTING IN BED WATCHING TV. USING URINAL PRN. NO ACUTE COMPLAINTS VOICED.
--- NOTE | 2017-06-24 00:09 | NUR ---
RESTING IN BED WITH EYES CLOSED.
--- NOTE | 2017-06-24 03:02 | NUR ---
RESTING IN BED WITH EYES CLOSED.
--- NOTE | 2017-06-24 06:15 | NUR ---
PT RESTING IN BED WITH EYES CLOSED. AWOKE EASILY TO VERBAL STIMULI. DENIES ACUTE PAIN OR DISCOMFORT AT THIS TIME. DRESSING TO ABD AND PEG TUBE CHANGED AT THIS TIME. NO DRAINAGE OR ODOR NOTED. HEALING SLOWLY.
--- NOTE | 2017-06-24 06:38 | NUR ---
RECIEVED UP IN BED WITH EYES CLOSED. NO S/S OF DISTRESS OBSERVED. BED ALARM IN PLACE AND FUNCTIONING PROPERLY.HOB ELEVATED FOR COMFORT. TURNS AND REPOSITIONS SELF. BED IN LOW POSITION AND STAR ON DOOR.
--- NOTE | 2017-06-24 09:24 | NUR ---
ASSISTED TO TOILET. USED WALKER AND AMBULATED WITH STAND BY ASSIST. MEDICATION GIVEN PER ORDERS PRIOR TO TOILETING. DENIED ANY PAIN OR NEEDS. CALL LIGHT AND OVERBED TABLE IN REACH. REMAINS IN CONTACT ISOLATION R/T MRSA IN WOUND.
[2017-06-24 09:32] VITALS: BP 107/61
--- NOTE | 2017-06-24 10:43 | NUR ---
Nutrition Follow Up: Pt is eating 89% meal avg on a regular diet. +BM 06/23/17. No new wt, labs. Meds reviewed. Rec continue current diet. RD following.
[2017-06-24 23:06] VITALS: BP 96/46
--- NOTE | 2017-06-24 23:35 | NUR ---
RESTING QUIETLY, EYES CLOSED.
--- NOTE | 2017-06-25 03:30 | NUR ---
PT IN BED WITH HOB UP FOR COMFORT. EYES CLOSED. RESP. EVEN. BED IN LOWEST POSITION AND CALL LIGHT WITHIN REACH.
--- NOTE | 2017-06-25 06:13 | NUR ---
DRESSING CHANGED ORDERED. URINAL EMPTIED.
--- NOTE | 2017-06-25 07:35 | NUR ---
SITTING UP IN BED RESTING QUIETLY. ALERT AND ORIENTED X3. NO S/SX OF DISTRESS. SCDS ON. DENIES ANY NEEDS. CALL LIGHT WITHIN REACH, BED LOW AND ALARM ON. WILL CONTINUE TO MONITOR
[2017-06-25 08:00] VITALS: BP 110/58
--- NOTE | 2017-06-25 08:01 | NUR ---
PT EATING BREAKFAST, DENIES NEEDS. WCTM.
--- NOTE | 2017-06-25 08:43 | NUR ---
C/O NAUSEA AND LOWER ABDOMINAL CRAMPING ADMINISTERED ZOFRAN 4MG PER PT REQUEST. NO S/SX OF DISTRESS. WILL CONTINUE TO MONITOR
--- NOTE | 2017-06-25 10:59 | NUR ---
SITTING UP IN BED WATCHING TV. DENIES ANY NEEDS OR PAIN. NO S/SX OF ACUTE DISTRESS. CALL LIGHT WITHIN REACH, BED LOW AND ALARM ON. WILL CONTINUE TO MONITOR
--- NOTE | 2017-06-25 15:00 | NUR ---
REFERRAL WAS FAXED TO [facility] AND THEY DECLINED PATIENT AT THIS TIME, SPOKE WITH PATIENT AND REFERAL HAS BEEN FAXED TO [facility]. WILL CONTINUE TO FOLLOW WITH PATIENT
--- NOTE | 2017-06-25 15:20 | NUR ---
LYING IN BED RESTING QUIELTY. DENIES ANY NEEDS OR PAIN. CALL LIGHT WITHIN REACH, BED LOW AND ALARM ON. WILL CONTINUE TO MONITOR
--- NOTE | 2017-06-25 16:59 | NUR ---
tamara joseph declined addmission, referral faxed to [facility] for possible admission. will continue to follow with patient
--- NOTE | 2017-06-25 20:10 | NUR ---
REST IN BED AND WATCH TV.
--- NOTE | 2017-06-25 20:27 | NUR ---
PT. IN BED WITH HOB UP FOR COMFORT AND C-COLLAR IN PLACE. PT. WATCHING TV AND HIS CALL LIGHT IS WITHIN REACH.
[2017-06-25 22:55] VITALS: BP 119/67
--- NOTE | 2017-06-26 03:07 | NUR ---
REST IN BED, EYE CLOSE, BED LOW, CALL LIGHT IN REACH.
[2017-06-26 06:13] LABS: CALC OSMOLALITY 284 mosm/kg (275-300); CALCIUM 10.1 mg/dL (8.5-10.1); CARBON DIOXIDE 30.8 mmol/L (21.0-32.0); CHLORIDE - SERUM 107 mmol/L (98-107); CREATININE - SERUM 0.7 mg/dL (0.6-1.3); GLUCOSE 76 mg/dL (74-106); POTASSIUM - SERUM 4.1 mmol/L (3.5-5.1); SODIUM 143 mmol/L (136-145); UREA NITROGEN 14 mg/dL (7-18); eGFR NON AFRICAN AMERICAN > 90 mL/min (90-120)
[2017-06-26 06:57] LABS: BASOPHILS 0.4 % (0-2); HEMATOCRIT 36.3 % (42.0-54.0); HEMOGLOBIN 11.3 g/dL (13.5-17.5); IMMATURE GRANULOCYTES 0.2 % (0-5); LYMPHOCYTES 37.6 % (15-50); MCH 29.1 pg (26.0-34.0); MCHC 31.1 g/dL (31.0-37.0); MCV 93.6 fL (80.0-100.0); MEAN PLATELET VOLUME 9.1 fL (7.4-10.4); MONOCYTES 9.6 % (2-11); NEUTROPHILS 46.2 % (40-80); RBC 3.88 10x6/uL (4.20-6.10); RDW 17.6 % (11.5-14.5)
[2017-06-26 06:58] LABS: PLATELET COUNT 365 10x3/uL (130-400)
--- NOTE | 2017-06-26 08:10 | NUR ---
PT RESTING IN BED WITH EYES OPEN EATING BREAKFAST TOLERATING WELL WILL MONITER
[2017-06-26 08:24] VITALS: BP 104/54
--- NOTE | 2017-06-26 12:28 | NUR ---
PT UP IN WHEELCHAIR AT BEDSIDE EATING LUNCH TOLERATING WELL WILL MONITER
--- NOTE | 2017-06-26 16:08 | NUR ---
PT RESTING IN BED WITH EYES OPEN CALL LIGHT IN REACH WILL MONITER
--- NOTE | 2017-06-26 17:00 | NUR ---
EATING SUPPER.CL IN REACH.
--- NOTE | 2017-06-26 19:45 | NUR ---
PT. IN BED WITH HOB UP FOR COMFORT. SOFT C-COLLAR ON AND ASSESSMENT COMPLETED. NO VOICED NEEDS AND HIS CALL LIGHT IS WITHIN REACH.
[2017-06-26 20:00] VITALS: BP 108/57
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
--- NOTE | 2017-06-26 23:10 | NUR ---
PT. IN BED WITH HOB UP FOR COMFORT WITH SOFT COLLAR ON. PT. STILL WATCHING TV AND HAS NO VOICED NEEDS. CALL LIGHT WITHIN REACH.
--- NOTE | 2017-06-27 03:01 | NUR ---
PT. IN BED WITH HOB UP FOR COMFORT AND SOFE C-COLLAR IN PLACE. EYES CLOSED AND RESP. EVEN. CALL LIGHT WITHIN REACH. SCD'S REMAIN ON BLE'S WITHOUT ANY ALARMS.
[2017-06-27 08:00] VITALS: BP 138/88
--- NOTE | 2017-06-27 08:07 | NUR ---
PT RESTING IN BED EATING BREAKFAST CALL LIGHT IN REACH WILL MONITER
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
--- NOTE | 2017-06-27 17:45 | NUR ---
EATING SUPPER.CL IN REACH.
--- NOTE | 2017-06-27 18:24 | NUR ---
PT RESTING IN BED WITH EYES OPEN CALL LIGHT IN REACH WILL MONITER
--- NOTE | 2017-06-27 20:15 | NUR ---
PT IN BED WITH HOB UP FOR COMFORT. WATCHING TV. ALERT & ORIENTED. SOFT COLLAR. BACK BRACE WHEN UP. CONTACT ISOLATION FOR MRSA IN WOUND. NO O2. NO IV. SCD'S. BED IN LOWEST POSITION AND CALL LIGHT WITHIN REACH. D/C TOMMORROW.
[2017-06-27 20:30] VITALS: BP 102/45
--- NOTE | 2017-06-27 20:46 | NUR ---
PT;S BP IS 91/46 AND 87/51. LOWERED PT'S HOB AND ELEVATED FEET AND ENCOURAGED FLUIDS. WILL CONTINUE TO MONITOR.
--- NOTE | 2017-06-28 00:45 | NUR ---
PT IN BED WITH HOB UP FOR COMFORT. RESTING QUIETLY. BED IN LOWEST POSITION AND CALL LIGHT WITHIN REACH.
--- NOTE | 2017-06-28 04:59 | NUR ---
PT LYING IN BED WITH HOB UP FOR COMFORT. EYES CLOSED. CHEST RISING AND FALLING. BED IN LOWEST POSITION AND CALL LIGHT WITHIN REACH.
--- NOTE | 2017-06-28 07:37 | NUR ---
SLEEPING.CL IN REACH.RESP EASY AND REGULAR.
--- NOTE | 2017-06-28 08:25 | NUR ---
PT RESTING IN BED WITH EYES OPEN CALL LIGHT IN REACH WILL MONITER
[2017-06-28] MEDS ORDERED: PERCOCET 5-3251 TAB PO (08:53)
[2017-06-28] MEDS ORDERED: DURAGESIC1 PATCH .4 TRANSDERM (08:53)
[2017-06-28 09:37] VITALS: BP 105/62
--- NOTE | 2017-06-28 16:07 | NUR ---
patient has been accepted to [facility] and will discharge there on 06/29/17 via facility van. appointments for follow up care will be made at time of discharge from facility. will continue to follow with patient until discharged. patient choice form for SNF signed and filed in chart.
--- NOTE | 2017-06-28 18:22 | NUR ---
PT RESTING IN BED WITH EYES OPEN CALL LIGHT IN REACH NO PROBELEM WILL MONITER
--- NOTE | 2017-06-28 19:50 | NUR ---
REST IN BED AND WATCH TV.
--- NOTE | 2017-06-28 20:00 | NUR ---
REMAINS IN BED, AWAKE. NO C/O AT THIS TIME.
[2017-06-28 23:41] VITALS: BP 112/62
--- NOTE | 2017-06-29 03:57 | NUR ---
REST IN BED, EYE CLOSE, CALL LIGHT IN REACH.
[2017-06-29 08:00] VITALS: BP 138/74
--- NOTE | 2017-06-29 08:00 | NUR ---
PATIENT TO BE DISCHARGED TO [facility]. IN [facility]. DR. Raymond POLO WROTE DISCHARGE ORDERS YESTERDAY. PATIENTS BELONGINGS PACKED UP BY THIS NURSE.
--- NOTE | 2017-06-29 08:19 | NUR ---
PT EATING BREAKFAST, DENIES NEEDS. WCTM.
--- NOTE | 2017-06-29 09:00 | NUR ---
[facility] HERE TO TRANSPORT PATIENT TO FACILITY. PATIENT REMAINS IN CONTACT ISOLATION MAINTAINED WITH TRANSFER. REPORT CALLED TO [facility]
== END 2017-06-29 11:00 | DRG 949 ==
LOC: D.REHAB 16:44
PROVIDERS: ADMIT Emergency Medicine
DX: S06.9X0D Unspecified intracranial injury without loss of consciousness, subsequent encounter (principal); J15.9 Unspecified bacterial pneumonia; J96.01 Acute respiratory failure with hypoxia; N39.0 Urinary tract infection, site not specified; V89.2XXD Person injured in unspecified motor-vehicle accident, traffic, subsequent encounter; Z93.0 Tracheostomy status; S27.1XXD Traumatic hemothorax, subsequent encounter; S22.43XD Multiple fractures of ribs, bilateral, subsequent encounter for fracture with routine healing; S42.002D Fracture of unspecified part of left clavicle, subsequent encounter for fracture with routine healing; S42.001D Fracture of unspecified part of right clavicle, subsequent encounter for fracture with routine healing; S22.20XD Unspecified fracture of sternum, subsequent encounter for fracture with routine healing; S22.019D Unspecified fracture of first thoracic vertebra, subsequent encounter for fracture with routine healing; S22.029D Unspecified fracture of second thoracic vertebra, subsequent encounter for fracture with routine healing; S22.069D Unspecified fracture of T7-T8 vertebra, subsequent encounter for fracture with routine healing; S22.079D Unspecified fracture of T9-T10 vertebra, subsequent encounter for fracture with routine healing; S12.100D Unspecified displaced fracture of second cervical vertebra, subsequent encounter for fracture with routine healing; S12.500D Unspecified displaced fracture of sixth cervical vertebra, subsequent encounter for fracture with routine healing; S22.039D Unspecified fracture of third thoracic vertebra, subsequent encounter for fracture with routine healing; S22.049D Unspecified fracture of fourth thoracic vertebra, subsequent encounter for fracture with routine healing; S22.059D Unspecified fracture of T5-T6 vertebra, subsequent encounter for fracture with routine healing; S36.039D Unspecified laceration of spleen, subsequent encounter; S02.19XD Other fracture of base of skull, subsequent encounter for fracture with routine healing; D64.9 Anemia, unspecified; D47.3 Essential (hemorrhagic) thrombocythemia; R50.9 Fever, unspecified